=== PATIENT | female | born 1985 | race Caucasian/White ===

== ENCOUNTER 2017-05-20 18:03 | Emergency (ER) | payer MEDICAID ==
[~2017-05-20] VITALS: Ht 157.5 cm; Wt 77.1 kg
[2017-05-20 18:23] VITALS: BP 100/69
[2017-05-20] MEDS ORDERED: ONDANSETRON 4 MG TAB.RAPDIS SL ONE (18:30)
[2017-05-20] MEDS ORDERED: ONDANSETRON 4 MG TAB.RAPDIS ONE (18:40)
== END 2017-05-20 18:52 | disposition home or self-care (01) ==
LOC: ER 18:10
DX: A08.4 Viral intestinal infection, unspecified (principal)
CPT/HCPCS: 99283; A4606; Q0162; Z7610